=== PATIENT | female | born 1995 | race Two or more races ===

== ENCOUNTER 2025-01-07 10:51 | Emergency (ER) | payer OTHER, MEDICAID ==
[~2025-01-07] VITALS: Ht 162.6 cm; Wt 50.3 kg
[2025-01-07 11:25] VITALS: BP 95/51; PULSE 67; RESP 16; TEMP 98.3; O2SAT 97
--- NOTE | 2025-01-07 11:33 | ED.PDOC ---
History of Present Illness HPI Comments A 29 YEAR OLD FEMALE PRESENTS TO THE ED WITH CHIEF COMPLAINT OF RIGHT BREAST LUMP. PATIENT REPORTS THAT SHE HAS BEEN EXPERIENCING A PALPABLE MASS IN HER RIGHT BREAST FOR THE PAST MONTH. PATIENT RELAYS THAT SHE IS CURRENTLY HER 4 MONTH OLD AT THIS TIME. PATIENT DENIES ANY CHEST PAIN, FEVER, CHILLS, ABDOMINAL PAIN, OR N/V. NO OTHER SYMPTOMS REPORTED AT THIS TIME OF CARE. Chief Complaint: Breast pain Time Seen by MD: 11:31 Reviewed Notes: Nurses Notes, Medications, Allergies Allergies: Coded Allergies: NO KNOWN ALLERGIES (Unverified , 01/07/25) Home Meds Active Scripts Naproxen (Naproxen) 500 Mg Tab, 500 MG PO BID, #30 TAB Prov:CAROLE LINDQUIST 01/07/25 Cephalexin Monohydrate (Cephalexin) 500 Mg Cap, 1 CAP PO TID, #30 CAP Prov:CAROLE LINDQUIST 01/07/25 Information Source: Patient Mode of Arrival: Ambulatory Severity: Moderate Timing: Months Duration: Since onset Prehospital treatment: None Medication Refill: For: Other (RIGHT BREAST LUMP ) Past Medical History PAST MEDICAL HISTORY: Denies Surgical History: Denies all surgeries APPLICATIONS SYSTEMS ENGINEER History: No Pertinent APPLICATIONS SYSTEMS ENGINEER History Family History Family History: Reviewed,noncontributory to illness Social History Smoker: Non-Smoker Alcohol: Denies ETOH Use Drugs: Denies Drug Use Lives In: Home Constitutional: denies: chills, diaphoresis, fatigue, fever, malaise, sweats, weakness, others EENTM: denies: blurred vision, double vision, ear bleeding, ear discharge, ear drainage, ear pain, ear ringing, eye pain, eye redness, hearing loss, mouth pain, mouth swelling, nasal discharge, nose bleeding, nose congestion, nose pain, photophobia, tearing, throat pain, throat swelling, voice changes, others Respiratory: denies: cough, hemoptysis, orthopnea, SOB at rest, shortness of breath, SOB with excertion, stridor, wheezing, others Cardiovascular: denies: chest pain, dizzy spells, diaphoresis, Dyspnea on exertion, edema, irregular heart beat, left arm pain, lightheadedness, palpitations, PND, syncope, others Gastrointestinal: denies: abdomen distended, abdominal pain, blood streaked bowels, constipated, diarrhea, dysphagia, difficulty swallowing, hematemesis, melena, nausea, poor appetite, poor fluid intake, rectal bleeding, rectal pain, vomiting, others Genitourinary: denies: abnormal vagina bleeding, burning, dyspareunia, dysuria, flank pain, frequency, hematuria, incontinence, pain, , vagina discharge, urgency, others Neurological: denies: dizziness, fainting, headache, left sided numbness, left sided weakness, numbness, paresthesia, pre-existing deficit, right sided numbness, right sided weakness, seizure, speech problems, tingling, tremors, weakness, others Musculoskeletal: denies: back pain, gout, joint pain, joint swelling, muscle pain, muscle stiffness, neck pain, others Integumetry: reports: lumps (RT BREAST LUMP); denies: bruises, change in color, change in hair/nails, dryness, laceration, lesions, rash, wounds, others Allergic/Immunocompromised: denies: Difficulty Healing, Frequent Infections, Hives, Itching, others Hematologic/Lymphatic: denies: anemia, blood clots, easy bleeding, easy bruising, swollen glands, others Endocrine: denies: excessive hunger, excessive sweating, excessive thirst, excessive urination, flushing, intolerance to cold, intolerance to heat, unexplained weight gain, unexplained weight loss, others Psychiatric: denies: anxiety, bipolar disorder, depression, hopeless, panic disorder, schizophrenia, sleepless, suicidal, others All Other Systems: Reviewed and Negative Physical Exam General Appearance: No Apparent Distress, Normal HEENT: Normal ENT Inspection, PERRL/EOMI, Pharynx Normal, TMs Normal Neck: Full Range of Motion, Non-Tender, Normal, Normal Inspection Respiratory: Chest Non-Tender, Lungs Clear, No Accessory Muscle Use, No Respiratory Distress, Normal Breath Sounds Cardiovascular: No Edema, No JVD, No Murmur, No Gallop, Normal Peripheral Pulses, Regular Rate/Rhythm Breast Exam: (R) Mass ([id number] LUMP ON RIGHT MIDDLE BREAST, 12 CLOCK REGION. ), (R) Tenderness (TENDERNESS AND MILD REDNESS ON RIGHT MIDDLE BREAST, AROUND LUMP REGION, NO OPEN WOUND AND PUS DRAINAGE. MASTITIS?? ), Other (NORMAL LEFT BREAST EXAM, NO MASS AND LUMP. 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 ) Peripheral Pulses: 2+ carotid (R), 2+ carotid (L) Lymphatic: No Adenopathy Was a procedure done? Was a procedure done?: No Differential Dx Considerations may include: BREAST MASS, MASTITIS X-Ray, Labs, Meds, VS Vital Signs Date Time Temp Pulse Resp B/P (MAP) Pulse Ox O2 Delivery O2 Flow Rate FiO2 01/07/25 11:25 98.3 67 16 95/51 (66) 97 98.3 01/07/25 11:25 67 16 97 Room Air 01/07/25 11:12 98.3 67 16 95/51 (66) 97 98.3 RT BREAST US: FINDINGS: BREAST: Targeted ultrasound of the inner upper right breast shows a complex cystic structure at the 12/1 o'clock position measuring 3.2 x 2.5 x 3.8 cm. This does not have internal vascularity but shows increased peripheral vascularity. OTHER FINDINGS: . . IMPRESSION: Probable breast abscess. X-Ray, Labs, Meds, VS Comment EXTERNAL MEDICAL RECORDS REVIEWED: [NONE] INDEPENDENT HISTORIANS: [NONE] SOCIAL DETERMINANTS OF HEALTH: [NONE] LABS ORDERED: NONE REVIEWED AND INTERPRETED RESULTS: RT BREAST US IMAGING ORDERED: RT BREAST US TREATMENTS ORDERED: ROCEPHIN 1G IM PROCEDURES PERFORMED: NONE CRITICAL CARE TIME: NONE I HAVE DISCUSSED THE PATIENT WITH THE ATTENDING PHYSICIAN DR. HARRIS AND HE AGREES WITH THE PATIENT'S PLAN OF CARE AND DISPOSITION. BASED ON HISTORY OF PRESENT ILLNESS, AND PHYSICAL EXAM, PATIENT WILL BE DISCHARGED HOME. DISCUSSED PLAN FOR DISCHARGE HOME WITH RX KEFLEX AND NAPROSYN. MEDICATION WARNINGS GIVEN. SHARED DECISION MAKING: DISCUSSED WITH PATIENT THAT THEIR WORKUP WAS NORMAL. PATIENT INSTRUCTED TO FOLLOW UP WITH PRIMARY CARE PROVIDER IN 1-2 DAYS FOR RE- EVALUATION OF SYMPTOMS. PATIENT VERBALIZES UNDERSTANDING TO RETURN TO ED FOR NEW OR WORSENING SYMPTOMS OR IF FOLLOW UP WITH PCP CANNOT BE OBTAINED. PATIENT FEELS COMFORTABLE GOING HOME AT THIS TIME. ALL QUESTIONS ADDRESSED AT TIME OF DISCHARGE. Time of 1ST Reevaluation: 13:00 Reevaluation 1ST: Improved Patient Education/Counseling: Diagnosis, Treatment, Need For Follow Up Family Education/Counseling: Diagnosis, Treatment, Need For Follow Up, No Family Present Medical Screening: No EMC Exist At This Time Departure 1 Departure Time of Disposition: 13:00 Impression: Primary Impression: Mastitis, right, acute Disposition: 01 HOME / SELF CARE / HOMELESS Condition: Stable Additional Instructions: FOLLOW-UP WITH PCP IN 2 DAYS FOR MAMMOGRAM TEST. TAKE MEDICATIONS PRESCRIBED. RETURN TO ED FOR ANY NEW OR WORSENING SYMPTOMS. e-Prescriptions Naproxen (Naproxen) 500 Mg Tab 500 MG PO BID, #30 TAB Prov: CAROLE LINDQUIST 01/07/25 Cephalexin Monohydrate (Cephalexin) 500 Mg Cap 1 CAP PO TID, #30 CAP Prov: CAROLE LINDQUIST 01/07/25 Discharged With: Self, Spouse Critical Care Note Critical Care Time?: No Stability Stability form required: No Heart Score Heart Score: Heart Score Response (Comments) Value History N/A 0 EKG N/A 0 Age N/A 0 Risk Factors N/A 0 Troponin N/A 0 Total 0 I personally scribed for CAROLE LINDQUIST ([email or web address]) on 01/07/25 at 11:33. Electronically submitted by Nicko Mishra ([email or web address]). I personally scribed for CAROLE LINDQUIST ([email or web address]) on 01/07/25 at 11:39. Electronically submitted by Nicko Mishra ([email or web address]). I personally scribed for CAROLE LINDQUIST ([email or web address]) on 01/07/25 at 12:22. Electronically submitted by Nicko Mishra ([email or web address]). I personally scribed for CAROLE LINDQUIST ([email or web address]) on 01/07/25 at 12:32. Electronically submitted by Nicko Mishra ([email or web address]). CAROLE LINDQUIST January 07, 2025 11:33
--- NOTE | 2025-01-07 12:15 | DVH ---
EXAM: US Right Breast, Limited CLINICAL INDICATION: RIGHT BREAST LUMP TECHNIQUE: Real-time ultrasound scan of the right breast with image documentation. COMPARISON: None FINDINGS: BREAST: Targeted ultrasound of the inner upper right breast shows a complex cystic structure at the 12/1 o'clock position measuring 3.2 x 2.5 x 3.8 cm. This does not have internal vascularity but show s increased peripheral vascularity. OTHER FINDINGS: . . IMPRESSION: Probable breast abscess.
[2025-01-07] MEDS ORDERED: NAPR-746 PO (12:33)
[2025-01-07] MEDS ORDERED: CEPH500C PO (12:33)
[2025-01-07] MEDS: cefTRIAXone SOD 1,000 MG VL IM ONE (12:36)
== END 2025-01-07 12:43 | disposition home or self-care (01) ==
LOC: EDBD 10:51 → ER 10:51
DX: N61.0 Mastitis without abscess (principal); Z79.899 Other long term (current) drug therapy
CPT/HCPCS: 76642; 96372; 99285; J0696